=== PATIENT | male | born 1935 | race Caucasian/White ===

== ENCOUNTER → 2016-06-26 | Outpatient (CLI) | payer OTHER ==
[~2016-06-26] VITALS: Ht 160 cm; Wt 60.2 kg
[~2016-06-26] MED LIST: ACET-24 PO; ACET1TAB84 PO; ADVIN25/60 INH; ALBUAER2 INH; ALEN70TA4 PO; ASPEC81 PO; ASPI81TA28 PO; CLB/200 PO; CLOP1TAB15 PO; DRON400T PO; LISI20TA3 PO; MULT-506 PO; NIAC1TAB59 PO; NTRGSL/4 UT; OMEG10007 PO; ONDA8TAB6 PO; PANT40TA PO; RXC5 PO; SIMV20TA2 PO; ULT50X PO
[2016-06-26 11:03] VITALS: Ht 160 cm; Wt 60.2 kg
--- NOTE | 2016-06-26 11:47 | PAT Medication Instructions ---
Service Date Jun 26, 2016. Current Home Medication List Acetaminophen (Tylenol Arthritis Ext Rel), 650 MG PO Q8H Alendronate Sodium (Fosamax), 70 MG PO WK Aspirin (Aspirin Ec), 81 MG PO QAM Clopidogrel (Plavix), 75 MG PO QAM Dronedarone Hcl (Multaq), 1 TAB PO BID Fluticasone Prop/Salmeterol (Advair Diskus 250/50 60 Dose), 1 PUFF INH BID Lisinopril (Prinivil), 20 MG PO QAM Multivitamin (Multivitamin), 1 TAB PO QAM Niacin Ext Rel (Niaspan Ext Rel), 500 MG PO HS Nitroglycerin (Nitrostat), 0.4 MG UT PRN Pantoprazole (Protonix), 40 MG PO QAM Simvastatin (Zocor), 20 MG PO QPM Medication Instructions For Your Scheduled Surgery Alendronate Sodium (Fosamax), 70 MG PO WK (continue as directed) - Check with surgeon/band sawyer for instructions (patient made aware that plavix needs to be held 7 days prior to surgery for spinal anesthesia-- patient will check if okay with cardiology) Clopidogrel (Plavix), 75 MG PO QAM - Hold the following medications the morning of surgery: Multivitamin (Multivitamin), 1 TAB PO QAM Lisinopril (Prinivil), 20 MG PO QAM - Take the following medications the morning of surgery with a sip of water: Nitroglycerin (Nitrostat), 0.4 MG UT PRN (if needed) Pantoprazole (Protonix), 40 MG PO QAM Fluticasone Prop/Salmeterol (Advair Diskus 250/50 60 Dose), 1 PUFF INH BID Acetaminophen (Tylenol Arthritis Ext Rel), 650 MG PO Q8H (if needed) Aspirin (Aspirin Ec), 81 MG PO QAM Dronedarone Hcl (Multaq), 1 TAB PO BID - Hold the following medications as scheduled the night before surgery: Niacin Ext Rel (Niaspan Ext Rel), 500 MG PO HS - Take the following medications as scheduled the night before surgery: Simvastatin (Zocor), 20 MG PO QPM Nitroglycerin (Nitrostat), 0.4 MG UT PRN (if needed) Fluticasone Prop/Salmeterol (Advair Diskus 250/50 60 Dose), 1 PUFF INH BID Acetaminophen (Tylenol Arthritis Ext Rel), 650 MG PO Q8H (if needed) If you have any questions please call us at [phone] (Pat Gao PA-C) or [phone] or [phone]
[2016-06-26 13:37] LABS: BASO % 0.3 %; BASO ABS # 0.03 K/uL (0-0.2); COMPLETE YES; EOS % 1.8 %; HEMATOCRIT 40.5 % (42-52); IG% 0.2 %; LYMPH % 22.6 %; MEAN CORPUSCULAR HEMOGLOBIN 30.2 pg (25-34); MEAN CORPUSCULAR HGB CONC 32.1 g/dl (32-36); MONO % 7.1 %; PLATELET COUNT 386 K/uL (130-400); RED BLOOD COUNT 4.31 M/uL (4.7-6.1); WHITE BLOOD COUNT 11.48 K/uL (4.8-10.8)
[2016-06-26 13:45] LABS: URINE APPEARANCE CLOUDY (CLEAR); URINE BILIRUBIN NEG (NEG); URINE COLOR DK YELLOW; URINE EPITHELIAL CELL AUTO >30 /lpf (0-5); URINE NITRITE NEG (NEG); URINE SPECIFIC GRAVITY 1.031 (1.000-1.030); UROBILINOGEN NEG (NEG); ZZUR CULT IF INDIC CLEAN CATCH NO
[2016-06-26 13:51] LABS: MANUAL MICROSCOPIC REQUIRED? NO; REVIEW REQ? YES
[2016-06-26 13:56] LABS: PARTIAL THROMBOPLASTIN RATIO 1.1; PROTHROMBIN TIME (PATIENT) 10.5 SECONDS (9.0-12.0)
[2016-06-26 13:57] LABS: BUN/CREATININE RATIO 12.4 (10-20); CALCIUM 8.8 mg/dl (8.5-10.1); CREATININE 0.83 mg/dl (0.60-1.40); POTASSIUM 4.2 mmol/L (3.5-5.1)
--- NOTE | 2016-07-10 16:32 | HISTORY & PHYSICAL EXAMINATION ---
DATE OF ADMISSION: 07/14/2016 CHIEF COMPLAINT: Right hip pain. HISTORY OF PRESENT ILLNESS: Mr. Mark is a 80-year-old male with a 3-month history of right hip pain. The patient rates his pain at 9/10. He has pain with his daily activities. He has limited standing and walking tolerance. Pain is worse with weightbearing. The patient is essentially wheelchair bound at this point. He is taking Tylenol for pain. He is scheduled for right hip replacement. PAST MEDICAL HISTORY: Atrial fib, [place], hypertension, acid reflux, hypercholesterolemia, spinal stenosis, COPD, and a history of kidney stones. He denies diabetes or DVT. PAST SURGICAL HISTORY: Lithotripsy. SOCIAL HISTORY: The patient denies alcohol or tobacco use. He lives in a single-flor home. He is and retired. FAMILY HISTORY: Negative for DVT. MEDICATIONS: Simvastatin 20 mg daily, Plavix 75 mg daily, pantoprazole 40 mg daily, lisinopril 20 mg daily, niacin ER, alendronate 70 mg weekly, Advair HFA 230/21 mcg, Multaq oral tab 400 mg b.i.d., multivitamin 1 daily, and Tylenol p.r.n. ALLERGIES: None. REVIEW OF SYSTEMS: See HPI. Ten other systems reviewed, all negative. PHYSICAL EXAMINATION: VITAL SIGNS: Height 5 feet 3 inches, weight 142 pounds, and BMI 25. GENERAL: This is a well-developed and well-nourished male who is alert and oriented x3. Mood and affect are appropriate. HEENT: Normocephalic and atraumatic. Mucous membranes are moist and intact. NECK: Supple without lymphadenopathy. HEART: Regular rate and rhythm without murmurs, rubs or gallops. LUNGS: Clear to auscultation without wheezes or rhonchi. ABDOMEN: Soft and nontender. Bowel sounds are equal and active. EXTREMITIES: No ecchymosis, redness or warmth. Thigh and calf are soft and nontender. Log roll of the hip reproduces pain in the groin. Range of motion is decreased. He is neurovascularly intact with +5/5 strength. X-RAY EXAMINATION: AP and lateral views show joint space narrowing and osteophyte formation. IMPRESSION: Degenerative joint disease, right hip. PLAN: The patient will be admitted for a right total hip arthroplasty, direct anterior approach. We will plan on aspirin and resuming Plavix for DVT prophylaxis. He will have [facility] for home physical therapy.
== END | disposition home or self-care (01) ==
LOC: C.LAB 08:00 → EDSTATUS 07-21 13:45
PROVIDERS: ATTEND Physician Assistant Medical
DX: Z01.818 Encounter for other preprocedural examination (principal); Z79.02 Long term (current) use of antithrombotics/antiplatelets; Z79.899 Other long term (current) drug therapy

== ENCOUNTER 2016-10-13 07:08 | Inpatient (IN) | payer OTHER ==
[2016-09-10 07:35] VITALS: BMI 23.0
[2016-10-13] VITALS (10 sets, daily range): BP systolic 111–149; BP diastolic 59–82; PULSE 81–95; TEMP 36.4–36.9; O2SAT 93–99; Ht 162.6 cm; Wt 60.5 kg
[~2016-10-13] VITALS: Ht 162.6 cm; Wt 60.5 kg
[~2016-10-13 07:08] MED LIST changes: -ACET-24 PO; +ACETAMINOPHEN 500 MG TAB PO SCH; -ALBUAER2 INH; -ASPEC81 PO; +CEFAZOLIN 1000MG/55 ML D5W 55 ML IV SCH; -CLOP1TAB15 PO; +CeleBREX 200 MG CAP PO SCH; +DEXAMETHASONE 4 MG TAB PO SCH; +FAMOTIDINE 20 MG TAB PO SCH; +GABAPENTIN 300 MG CAP PO SCH; +LACTATED RINGER'S 1000ML 1,000 ML IV SCH; +LACTATED RINGER'S 1000ML 500 ML IV ONE; +LACTATED RINGER'S 1000ML IV SCH; -OMEG10007 PO; +ROPIVACAINE 5MG/ML 30 ML 150 MG, BUPIVACAINE/EPINEPHR 0.5% MPF 30 ML, KETOROLAC TROMETH... INFIL SCH; -RXC5 PO; -ULT50X PO
--- NOTE | 2016-10-13 07:15 | History & Physical Bridge Note ---
H&P Re-Evaluation Bridge Note: I have examined the patient, reviewed the History & Physical and in the interval since the performance of the History & Physical I have noted the following changes of clinical significance: No changes noted
[2016-10-13] MEDS ORDERED: BUPIVACAINE 0.5 % 5 MG/1 ML PF 10ML VIAL ONE (07:34)
[2016-10-13] MEDS ORDERED: HYDROmorphone INJ 1 MG/ML SYR IV PRN (07:45)
[2016-10-13] MEDS ORDERED: MEPERIDINE HCL 25 MG/ML CARP IV PRN (07:45)
[2016-10-13] MEDS ORDERED: LABETALOL HCL IV 5 MG/ML 20ML IV PRN (07:45)
[2016-10-13] MEDS ORDERED: ATROPINE SULFATE 0.1 MG/ML 5ML SYR IV PRN (07:45)
[2016-10-13] MEDS ORDERED: FENTANYL CITRATE INJ 50 MCG/1 ML 2 ML VIAL IV PRN (07:45)
[2016-10-13] MEDS ORDERED: EpHEDrine SULFATE INJ 50 MG/ML AMP IV PRN (07:45)
[2016-10-13] MEDS ORDERED: ONDANSETRON INJ 2 MG/ML 2 ML VIAL IV PRN ×2 (07:45→11:00)
[2016-10-13] MEDS ORDERED: MIDAZOLAM HCL 1 MG/ML 2ML VIAL ONE (08:04)
[2016-10-13] MEDS ORDERED: FENTANYL CITRATE INJ 50 MCG/1 ML 2 ML VIAL ONE ×2 (08:05→08:46)
[2016-10-13] MEDS ORDERED: PROPOFOL IV EMULSION 10 MG/ML 20 ML VIAL IV ONE (08:06)
[2016-10-13] MEDS ORDERED: LIDOCAINE HCL 2% 2 ML VIAL (20MG/ML) ONE (08:06)
[2016-10-13] MEDS ORDERED: POVIDONE-IODINE OP SOLN 30 ML BTL ONE (08:46)
[2016-10-13] MEDS ORDERED: ORTHO JOINT ANESTHETIC ONE (08:46)
[2016-10-13] MEDS ORDERED: BACITRACIN 50000 UNIT VIAL ONE (08:46)
[2016-10-13] MEDS ORDERED: DEXAMETHASONE SOD INJ 4 MG/ML VIAL ONE (09:00)
[2016-10-13] MEDS ORDERED: ONDANSETRON INJ 2 MG/ML 2 ML VIAL ONE (09:01)
[2016-10-13] MEDS: TRANEXAMIC ACID INJ 1,000 MG in SODIUM CHLORIDE 0.9% 100ML 100 ML IV SCH ×2 (09:13→13:57)
--- NOTE | 2016-10-13 09:24 | History and Physical ---
History & Physical Date & Time of Service: Oct 13, 2016 at 09:11 Chief Complaint: Right Hip Osteoarthritis Primary Care Physician: Velasquez Lerner M.D. History of Present Illness Source: family Patient is a 80-year-old white male who is here today for right total hip arthroplasty. The patient currently is having some nausea and vomiting from some medications given earlier and history will be taken from the patient's and son and a little bit from himself as well. He states that he has been having pain in the low back and hip for proximal 7 years. He has a history of lumbar stenosis and has had back pain in the past but he began having right hip pain in the groin and down the leg over the last several years. He had been seen by Dr. Ríos in the past and had been scheduled for [facility] in June but was subsequently canceled at that time. The family states that he is now essentially bed to chair activity. He was ambulating with a cane or walker at home however he is unable to do this anymore due to right hip pain. Conservative therapy has no longer giving him any relief and he is now here for right total hip arthroplasty. 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 No history of diabetes mellitus , tuberculosis, hepatitis, DVT. Past surgical history: History of lithotripsy in the past, placement of cardiac stents 2 Family History Patient reports no known family medical history. Noncontributory Social History Smoking Status: Never Smoker Alcohol Use: none Marital Status: Occupational Status: retired Allergies Coded Allergies: No Known Allergies (Unverified , 10/13/16) Home Medications Scheduled Acetaminophen (Tylenol Arthritis Ext Rel), 650 MG PO Q8H Alendronate Sodium (Fosamax), 70 MG PO WK Aspirin (Aspirin Ec), 81 MG PO QAM Celecoxib (CeleBREX), 200 MG PO BID Dronedarone Hcl (Multaq), 1 TAB PO BID Fluticasone Prop/Salmeterol (Advair Diskus 250/50 60 Dose), 1 PUFF INH BID Lisinopril (Prinivil), 20 MG PO QAM Multivitamin (Multivitamin), 1 TAB PO QAM Niacin Ext Rel (Niaspan Ext Rel), 500 MG PO HS Nitroglycerin (Nitrostat), 0.4 MG UT PRN Pantoprazole (Protonix), 40 MG PO QAM Simvastatin (Zocor), 20 MG PO QPM Scheduled PRN Ondansetron Hcl (Zofran), 8 MG PO Q8 PRN for Nausea Review of Systems Constitutional: No fever, No chills, No sweats, No weight loss, No weakness, No fatigue Eyes: No worsening of vision, No eye pain, No redness, No discharge, No diplopia ENT: No hearing loss, No unusual epistaxis, No nasal symptoms, No sore throat, No tinnitus, No dental problems, No trouble swallowing Respiratory: + cough (regular with sputum production due to COPD), + sputum, + shortness of breath (on exertion), No wheezing, No dyspnea on exertion, No dyspnea at rest, No hemoptysis Cardiovascular: + edema (mild RLE compared to left), No chest pain, No orthopnea, No PND, No claudication, No palpitations Abdomen: + problem reported (rectal bleeding dut to hemorrhoids), No pain, No nausea, No vomiting, No diarrhea, No constipation, No GI bleeding Musculoskeletal: + joint pain (R hip), No muscle pain, No calf pain Genitourinary - Male: + problem reported (currently with renal calculi), No hematuria, No dysuria Neurologic: No memory loss, No paralysis, No weakness, No numbness/tingling, No vertigo, No problem reported Psychiatric: No depression symptoms, No anhedonism, No anxiety, No insomnia, No substance abuse, No problem reported Integumentary: No rash, No itch, No new/changing skin lesions, No color change , No bleeding, No problem reported Allergic / Immunologic: No environmental allergies, No seasonal allergies, No pet sensitivities, No food allergies, No hives, No frequent infections, No poor healing, No prolonged convalescence, No problem reported Physical Exam Vital Signs Date Time Temp Pulse Resp B/P (MAP) Pulse Ox O2 Delivery O2 Flow Rate FiO2 10/13/16 07:45 36.9 81 20 149/82 98 Room Air General Appearance: WD/WN Head: normocephalic, atraumatic Eyes: + pertinent finding (mild scleral injection) ENT: normal ENT inspection Neck: supple Respiratory/Chest: lungs clear Cardiovascular: regular rate, rhythm Abdomen/GI: normal bowel sounds, non tender Back: normal inspection Extremities/Musculoskelatal: + pertinent finding (Right hip pain with limited ROM. Multiple types of ROM causes hip/groin pain) Neurologic/Psych: no motor/sensory deficits Skin: normal color Impression Assessment and Plan Djd Right Hip Plan : Right [facility] Advanced Directives Existing Living Will: No Existing Power of Traveling Accountant: No
--- NOTE | 2016-10-13 10:29 | [facility] Post Operative Brief Note ---
Immediate Operative Summary Operative Date Oct 13, 2016. Pre-Operative Diagnosis Degenerative joint disease right hip Post-Operative Diagnosis Degenerative joint disease right hip Procedure(s) Performed Right total hip arthroplasty Surgeon Dr. Sky Edge In[facility] Heels Surgeon(s) Sy Naidu PA-C Estimated Blood Loss 75cc Findings 3/4 collapse femoral head Specimens A. Right femoral head Disposition Recovery Room / PACU
--- NOTE | 2016-10-13 10:42 | OPERATIVE REPORT ---
DATE OF OPERATION: 10/13/2016 PREOPERATIVE DIAGNOSIS: Osteoarthritis, right hip. POSTOPERATIVE DIAGNOSIS: Osteoarthritis, right hip. PROCEDURE: Right connective total hip arthroplasty. SURGEON: Dr. Sky. ROUND BONER: TOMASZ Lugo ANESTHESIA: Spinal. COMPLICATIONS: None. IMPLANTS USED: Acetabular reamer used 52, acetabular shell 52, femoral head -2.5 x 36 mm ceramic, and femoral stem 5. OPERATION AND FINDINGS: DESCRIPTION OF PROCEDURE: Following induction of adequate spinal anesthesia, the patient was placed in left lateral decubitus position and a right Johny-Langenbeck incision was made. Subcutaneous tissue was sharply dissected. Electrocautery used for hemostasis. The fascia was incised throughout the length of the wound and a sneed scissor placed beneath the short external rotators. The pyriformis was tagged with #1 Vicryl. The short external rotators were divided from the posterior aspect of the femur using electrocautery. These were swept posteriorly. A T-capsulotomy incision was made and the hip was dislocated using a combination of flexion, adduction, and internal rotation. Exposure of the femoral neck with old-style Hohmann and a blunt Hohmann was carried out and a femoral rasp was utilized as a guide for making the appropriate level femoral neck cut. This bone fragment was removed and reserved on the back table. Next, attention was turned to the acetabulum where bone hook was used to retract the femur while the offset retractors were placed anterior and posteriorly. A double-angled Hohmann was placed in superior and anterior position exposing the acetabulum nicely. Acetabular labrum as well as posterior capsule elements were removed using a long knife and a long pickup. Fovea centralis was cleared of all soft tissue. Sequential reamings were carried up to a 52 and decision was made to proceed with impaction of a 52 trabecular metal cup. This was impacted and held using a single 35 mm bone screw. The acetabular liner was placed with 15 of elevated posterior wall in the superior and posterior position. Next, attention was turned to the femoral portion of the case where a Bovie and pickup was used to further clear short external rotators from their insertion on the femur. Box osteotome was used to gain access to the femoral canal and the T-handled rasp and a rattail rasp were used to further open and lateral the canal. Sequentially raspings were carried up to a 5, which gave good fit and fill of the proximal femur. A trial reduction was carried out and std offset femoral neck component was chosen as the size to be used. A -2.5 x 36 mm femoral head was impacted into position, +0 head was utilized. The trial reduction was stable in all degrees of rotation with no [id number] impingement. The hip was dislocated. The trial components were removed and the final femoral stem, neck, and femoral head combination were assembled on the back table and impacted into position. Hip was relocated. Range of motion checked once again successful and the wound was irrigated. The pyriformis repaired to the greater trochanter using #1 Vicryl [id number] suture. A Hemovac drain was placed and the fascia was closed using #1 Vicryl, subcutaneous tissue was closed using 0 Dexon, and skin was closed with henri. Sterile dressing of Adaptic, 4 x 4's, ABDs, and foam tape was applied. The patient tolerated the procedure well. Due to the complex nature of the procedure, the entire surgery was performed with the operational assistance of TOMASZ Lugo. The office clerk assistant, under direct supervision, was involved in the actual performance of all aspects of the surgical procedure including hemostasis, tissue retraction and incision, instrument management, patient positioning, and wound closure. I attest to the content of the Intraoperative Record and any orders documented therein. Any exceptions are noted below. TANIKA
[2016-10-13] MEDS ORDERED: MoRPHine SULFATE 2 MG/ML CARP IV PRN (11:00)
[2016-10-13] MEDS ORDERED: MoRPHine SULFATE 4 MG/ML 1 ML CARP\\VIAL IV PRN (11:00)
[2016-10-13] MEDS ORDERED: NITROGLYCERIN 0.4 MG SL PER TAB CHARGE UT SCH (11:00)
[2016-10-13] MEDS ORDERED: TRAMADOL HCL 50 MG TAB PO PRN (11:00)
[2016-10-13] MEDS ORDERED: MAGNESIUM HYDROXIDE SUSP 30 ML UDC PO PRN (11:00)
[2016-10-13] MEDS ORDERED: OXYCODONE HCL IR 5 MG TAB (IMMEDIATE RELEASE) PO PRN (11:00)
[2016-10-13] MEDS ORDERED: BISACODYL 10 MG SUPP PR PRN (11:00)
[2016-10-13] MEDS ORDERED: ALUMINUM/MAGNESIUM/SIMETH (MAALOX MAX) 30 ML UDC PO PRN (11:00)
--- NOTE | 2016-10-13 12:03 | DIAGNOSTIC IMAGING REPORT ---
RIGHT PELVIS/UNILATERAL HIP 1 VIEW CLINICAL HISTORY: 80 years-old Male presenting with postoperative right hip arthroplasty. TECHNIQUE: Single frontal view of the pelvis and lateral view of the right hip were obtained. COMPARISON: 08/13/2015. FINDINGS: Interval total right hip arthroplasty. No apparent hardware complication. No fracture or malalignment. Expected soft tissue emphysema and a surgical drain noted. Left hip joint congruent and grossly normal. IMPRESSION: Expected postoperative changes status post right hip arthroplasty. Electronically signed by: Vinod Ho M.D. 10/13/2016 12:02 PM Dictated Date/Time: 10/13/2016 12:01 PM
--- NOTE | 2016-10-13 13:13 | Anesthesiology Progress Note ---
Anesthesia Post Op Note Date & Time Oct 13, 2016 at 13:13 Vital Signs Pain Intensity: 0 Vital Signs Past 12 Hours Date Time Temp Pulse Resp B/P (MAP) Pulse Ox O2 Delivery O2 Flow Rate FiO2 10/13/16 12:41 97/56 10/13/16 12:39 79 17 10/13/16 12:39 75 17 96 10/13/16 12:36 113/62 10/13/16 12:34 73 20 97 10/13/16 12:34 76 20 10/13/16 12:31 109/55 10/13/16 12:29 70 21 97 10/13/16 12:29 68 21 10/13/16 12:26 118/59 10/13/16 12:24 74 18 87 10/13/16 12:24 77 18 10/13/16 12:21 118/62 10/13/16 12:19 84 17 10/13/16 12:19 89 17 92 10/13/16 12:18 77 19 10/13/16 12:18 76 19 96 10/13/16 12:16 111/54 10/13/16 12:13 68 16 95 10/13/16 12:13 70 16 10/13/16 12:11 114/55 10/13/16 12:08 74 17 98 10/13/16 12:08 76 17 10/13/16 12:06 107/56 10/13/16 12:03 67 16 10/13/16 12:03 65 16 97 10/13/16 12:01 119/61 10/13/16 11:58 88 17 97 10/13/16 11:58 89 17 10/13/16 11:56 114/57 10/13/16 11:53 67 21 10/13/16 11:53 85 21 100 10/13/16 11:51 37.1 88 20 110/56 100 Nasal Cannula 2 10/13/16 11:51 110/56 10/13/16 11:48 76 18 10/13/16 11:48 75 18 99 10/13/16 11:47 96 21 100 10/13/16 11:47 87 21 10/13/16 11:46 114/54 10/13/16 11:42 72 15 10/13/16 11:42 69 15 100 10/13/16 11:41 108/58 10/13/16 11:37 71 16 98 10/13/16 11:37 68 16 10/13/16 11:36 97/55 10/13/16 11:32 74 18 10/13/16 11:32 74 18 97 10/13/16 11:31 120/51 10/13/16 11:27 80 19 10/13/16 11:27 86 19 98 10/13/16 11:26 114/57 10/13/16 11:22 65 18 99 10/13/16 11:22 63 18 10/13/16 11:21 108/52 10/13/16 11:18 64 18 10/13/16 11:18 62 18 98 10/13/16 11:16 95/52 10/13/16 11:13 74 17 97 10/13/16 11:13 62 17 10/13/16 11:11 104/52 10/13/16 11:08 75 15 10/13/16 11:08 80 15 97 10/13/16 11:06 114/52 10/13/16 11:03 75 10/13/16 11:03 75 97 10/13/16 11:01 110/56 10/13/16 10:59 119/65 10/13/16 10:58 36.3 92 20 119/65 94 Mask 10 10/13/16 07:45 36.9 81 20 149/82 98 Room Air Notes Mental Status: alert / awake / arousable, participated in evaluation Pt Amnestic to Procedure: Yes Nausea / Vomiting: adequately controlled Pain: adequately controlled Airway Patency, RR, SpO2: stable & adequate BP & HR: stable & adequate Hydration State: stable & adequate Anesthetic Complications: no major complications apparent
[2016-10-13] MEDS: D5W AND 1/2NSS + 20MEQ KCL 1,000 ML IV SCH ×2 (13:56→23:15)
[2016-10-13] MEDS: ACETAMINOPHEN 500 MG TAB PO SCH ×2 (13:58→21:14)
[2016-10-13] MEDS: CEFAZOLIN IV 1,000 MG in DEXTROSE 5% 50ML 50 ML IV SCH (16:50)
[2016-10-13] MEDS: FERROUS GLUCONATE 324 MG TAB PO SCH (16:51)
[2016-10-13] MEDS ORDERED: ALBUT/IPRATROP 3MG/0.5MG NEB 3 ML VIAL INH PRN (17:15)
--- NOTE | 2016-10-13 17:26 | Medical Consult ---
Consultation Date of Consultation: Oct 13, 2016. Attending Physician: Cory Sky M.D. Reason for Consultation: Medical management History of Present Illness This is a 80 y/o male with a history of paroxysmal a-fib, CAD, [place] x 2 s/p stents x 2 in 2008, HTN, HLD, COPD, osteoporosis and GERD who presents s/p right GEORGE with Dr. Sky on 10/13 for medical management. The patient reports feeling well post operatively. He denies any pain. He does still have some numbness/tingling in his right lower extremity. Per his , the patient did have some nausea earlier this morning prior the procedure, but he denies any now or following the procedure. He ate a late lunch without any difficulties. He has also urinating postoperatively without issue. He believes he is passing gas as well but denies any bowel movements. The patient denies fevers, chills, sweats, chest pain, palpitations, claudication, cough, wheezing, shortness of breath, nausea, vomiting, abdominal pain, dysuria, hematuria, urinary retention , paralysis, weakness. Past Medical/Surgical History Medical Problems: (1) Contusion of hip, right Status: Acute (2) Forehead contusion Status: Acute (3) Head injury, closed Status: Acute Paroxysmal a-fib CAD [place] x 2, stents x 2--NSTEMI May 2008, STEMI July 2008 HTN HLD COPD Osteoporosis GERD Family History Cancer (breast, colon) Hyperlipidemia Hypertension Myocardial infarction Social History Smoking Status: Never Smoker Smokeless Tobacco Use: Yes (1 can every 3 days) Alcohol Use: none Drug Use: none Marital Status: Housing Status: lives with significant other Occupation Status: retired Allergies Coded Allergies: No Known Allergies (Unverified , 10/13/16) Current Inpatient Medications Current Inpatient Medications Medications (Trade) Dose Ordered Sig/Margo Route Start Time Stop Time Status Last Admin Dose Admin Lactated Ringer's 1,000 ml @ 60 mls/hr [id number] IV 10/13/16 06:00 10/13/16 22:39 Cefazolin Sodium 55 ml @ 100 mls/hr PREOP IV 10/13/16 06:00 10/13/16 18:00 10/13/16 09:27 100 MLS/HR Acetaminophen (Tylenol Tab) 1,000 mg PREOP PO 10/13/16 06:00 10/13/16 18:00 Celecoxib (CeleBREX CAP) 200 mg PREOP PO 10/13/16 06:00 10/13/16 18:00 10/13/16 08:13 200 MG Dexamethasone (Decadron Tab) 8 mg PREOP PO 10/13/16 06:00 10/13/16 18:00 10/13/16 08:13 8 MG Famotidine (Pepcid Tab) 20 mg PREOP PO 10/13/16 06:00 10/13/16 18:00 10/13/16 08:13 20 MG Gabapentin (Neurontin Cap) 300 mg PREOP PO 10/13/16 06:00 10/13/16 18:00 10/13/16 08:13 300 MG Tranexamic Acid 1000 mg/Sodium Chloride 110 ml @ 660 mls/hr TODAY@06,0630 IV 10/13/16 06:00 10/13/16 18:00 10/13/16 09:13 660 MLS/HR Lactated Ringer's 1,000 ml @ 15 mls/hr Q24H IV 10/13/16 06:00 10/14/16 05:59 10/13/16 08:07 15 MLS/HR Fentanyl Citrate (Fentanyl Inj) 50 mcg Q5M PRN IV 10/13/16 07:45 10/14/16 07:44 Hydromorphone HCl (Dilaudid Inj) 0.5 mg Q5M PRN IV 10/13/16 07:45 10/14/16 07:44 Meperidine HCl (Demerol Inj) 25 mg Q5M PRN IV 10/13/16 07:45 10/14/16 07:44 Ondansetron HCl (Zofran Inj) 4 mg ONE PRN IV 10/13/16 07:45 10/14/16 07:44 Labetalol HCl (Normodyne IV) 5 mg Q5M PRN IV 10/13/16 07:45 10/14/16 07:44 Ephedrine Sulfate (EpHEDrine SULFATE INJ) 5 mg Q5M PRN IV 10/13/16 07:45 10/14/16 07:44 Atropine Sulfate (Atropine Sulfate 0.1MG/Ml Inj) 0.5 mg Q1M PRN IV 10/13/16 07:45 10/14/16 07:44 Celecoxib (CeleBREX CAP) 200 mg BID PO 10/13/16 21:00 11/12/16 20:59 Dronedarone (Multaq Tab) 400 mg BID PO 10/13/16 21:00 11/12/16 20:59 Salmeterol Xinafoate/ Fluticasone (Advair Diskus 250/50 Inh) 1 puff BID INH 10/13/16 21:00 11/12/16 20:59 Lisinopril (Zestril Tab) 20 mg QAM PO 10/14/16 09:00 11/13/16 08:59 Multivitamins (Multivitamin Tab) 1 tab QAM PO 10/14/16 09:00 11/13/16 08:59 Niacin (Niaspan Extended Rel Tab) 500 mg HS PO 10/13/16 21:00 11/12/16 20:59 Nitroglycerin (Nitrostat Tab) 0.4 mg PRN UT 10/13/16 11:00 11/12/16 10:59 Pantoprazole Sodium (Protonix Tab) 40 mg QAM PO 10/14/16 09:00 11/13/16 08:59 Simvastatin (Zocor Tab) 20 mg QPM PO 10/13/16 21:00 11/12/16 20:59 Morphine Sulfate (MoRPHine SULFATE INJ) 2 mg Q4HWA PRN IV 10/13/16 11:00 10/27/16 10:59 Morphine Sulfate (MoRPHine SULFATE INJ) 4 mg Q4HWA PRN IV 10/13/16 11:00 10/27/16 10:59 Potassium Chloride/Dextrose/ Sod Cl 1,000 ml @ 100 mls/hr Q10H IV 10/13/16 14:00 10/14/16 10:58 10/13/16 13:56 100 MLS/HR Oxycodone HCl (Roxicodone Immediate Rel Tab) 1 TABLET FOR PAIN RATING... Q4H PRN PO 10/13/16 11:00 10/27/16 10:59 Acetaminophen (Tylenol Tab) 1,000 mg Q8 PO 10/13/16 14:00 11/12/16 13:59 10/13/16 13:58 1,000 MG Magnesium Hydroxide (Milk Of Magnesia Susp) 30 ml Q6H PRN PO 10/13/16 11:00 11/12/16 10:59 Bisacodyl (Dulcolax Supp) 10 mg DAILY PRN IA 10/13/16 11:00 11/12/16 10:59 Senna (Senokot Tab) 17.2 mg HS PO 10/13/16 21:00 11/12/16 20:59 Docusate Sodium (coLACE CAP) 100 mg BID PO 10/13/16 21:00 11/12/16 20:59 Al Hydrox/Mg Hydrox/Simethicone (Maalox Max Susp) 15 ml Q4H PRN PO 10/13/16 11:00 11/12/16 10:59 Ondansetron HCl (Zofran Inj) 4 mg Q6H PRN IV 10/13/16 11:00 11/12/16 10:59 Ferrous Gluconate (Ferrous Gluconate Tab) 324 mg TIDM PO 10/13/16 17:45 11/12/16 17:44 10/13/16 16:51 324 MG Tramadol HCl (Ultram Tab) 1 TABLET FOR PAIN RATING... Q4H PRN PO 10/13/16 11:00 11/12/16 10:59 Cefazolin Sodium 1000 mg/Dextrose 55 ml @ 100 mls/hr Q8H IV 10/13/16 18:00 10/14/16 02:32 10/13/16 16:50 100 MLS/HR Aspirin (Ecotrin Tab) 81 mg BID PO 10/13/16 21:00 11/12/16 20:59 Review of Systems See HPI for pertinent positives and negatives. All other systems reviewed and negative. Physical Exam Date Time Temp Pulse Resp B/P (MAP) Pulse Ox O2 Delivery O2 Flow Rate FiO2 10/13/16 16:00 36.9 85 18 120/65 (83) 99 Nasal Cannula 2.0 10/13/16 14:59 36.4 83 18 115/64 (81) 99 Nasal Cannula 2.0 10/13/16 14:01 36.7 90 18 130/71 (90) 93 Nasal Cannula 2.0 10/13/16 13:27 36.7 94 18 111/60 (77) 96 Nasal Cannula 3.0 10/13/16 13:15 98 Nasal Cannula 3.0 10/13/16 13:03 36.5 92 18 119/66 (83) 98 Nasal Cannula 3.0 14/17 13:00 98 Nasal Cannula 2.0 10/13/17 12:41 97/56 10/13/17 12:39 79 17 10/13/17 12:39 75 17 96 10/13/17 12:36 113/62 14/17 12:34 73 20 97 14/17 12:34 76 20 1417 12:31 109/55 10/13/17 12:29 70 21 97 14/17 12:29 68 21 14/17 12:26 118/59 14/17 12:24 74 18 87 14/17 12:24 77 18 17 12:21 118/62 10/13/17 12:19 84 17 10/13/16 12:19 89 17 92 10/13/16 12:18 77 19 10/13/16 12:18 76 19 96 10/13/16 12:16 111/54 10/13/16 12:13 68 16 95 10/13/16 12:13 70 16 10/13/16 12:11 114/55 10/13/16 12:08 74 17 98 10/13/16 12:08 76 17 10/13/16 12:06 107/56 10/13/16 12:03 67 16 10/13/16 12:03 65 16 97 10/13/16 12:01 119/61 10/13/17 11:58 88 17 97 10/13/16 11:58 89 17 10/13/16 11:56 114/57 17 11:53 67 21 14/17 11:53 85 21 100 10/13/17 11:51 37.1 88 20 110/56 100 Nasal Cannula 2 14/17 11:51 110/56 14/17 11:48 76 18 14/17 11:48 75 18 99 14/17 11:47 96 21 100 14/17 11:47 87 21 14/17 11:46 114/54 14/17 11:42 72 15 14/17 11:42 69 15 100 14/17 11:41 108/58 14/17 11:37 71 16 98 10/13/16 11:37 68 16 10/13/16 11:36 97/55 10/13/16 11:32 74 18 10/13/16 11:32 74 18 97 10/13/16 11:31 120/51 10/13/16 11:27 80 19 10/13/16 11:27 86 19 98 10/13/16 11:26 114/57 10/13/16 11:22 65 18 99 10/13/16 11:22 63 18 10/13/16 11:21 108/52 10/13/16 11:18 64 18 10/13/16 11:18 62 18 98 10/13/16 11:16 95/52 10/13/16 11:13 74 17 97 10/13/16 11:13 62 17 10/13/16 11:11 104/52 10/13/16 11:08 75 15 10/13/16 11:08 80 15 97 10/13/16 11:06 114/52 10/13/16 11:03 75 10/13/16 11:03 75 97 10/13/16 11:01 110/56 10/13/16 10:59 119/65 10/13/16 10:58 36.3 92 20 119/65 94 Mask 10 10/13/16 07:45 36.9 81 20 149/82 98 Room Air General appearance: Well-developed, well-nourished, no apparent distress Head: Normocephalic, atraumatic Eyes: Normal inspection, PERRL, EOMI ENT: Normal ENT inspection, hearing grossly normal, pharynx normal Neck: Supple, no JVD, trachea midline Respiratory/Chest: +Diffuse wheezing. Normal breath sounds, no respiratory distress Cardiovascular: Regular rate & rhythm, no gallop, no murmur Abdomen/GI: Normal bowel sounds, non-tender, soft Extremities/Musculoskeletal: +Trace pitting edema. Normal pedal pulses bilaterally. Normal inspection, no calf tenderness Neurological/Psych: +Sensation intact. Alert, normal mood/affect, oriented x 3 Skin: Normal color, warm/dry, no rash Assessment & Plan 80 y/o male with a history of paroxysmal a-fib, CAD, [place] x 2 s/p stents x 2 in 2008, HTN, HLD, COPD, osteoporosis and GERD who presents s/p right GEORGE with Dr. Sky on 10/13 for medical management. S/p right GEORGE--stable -Pain management, DVT prophylaxis, and PT/OT as per primary team Paroxysmal a-fib--stable, currently in SR -Continue dronedarone 400 mg PO BID CAD, h/o [place], HTN, HLD -Continue ASA, niacin 500 mg PO qhs and simvastatin 20 mg PO qhs -Hold lisinopril for now until renal function checked. May resume if stable. COPD--wheezing on exam -DuoNebs QIDR and q2h prn SOB/wheezing -Continue Advair BID Osteoporosis -Pt takes Fosamax 70 mg PO weekly on Sundays GERD -Continue Protonix 40 mg PO qd Code Status -Level I, FULL RESUSCITATION STATUS Thank you for this consultation. We will continue to follow. Reviewed: Pt Seen/Exam by Me History Physician Machine Pecan Picker Supervision Note: I interviewed and examined the patient. Discussed with TOMASZ Kulkarni and agree with findings and plan as documented in the note. Any exceptions or clarifications are listed here: Patient doing very well postoperatively from his right GEORGE. No chest pain. Vitals reviewed No acute distress, sitting up in bed eating his dinner Regular rate and rhythm, no murmurs, rubs Lungs with diffuse wheezes, no rhonchi or crackles, breathing is unlabored Abdomen positive bowel sounds soft nontender nondistended Extremities right hip with dressing intact, minimal surrounding edema, able to dorsiflex and plantar flex the right foot, 2 posterior cells pedis pulses bilaterally, no calf tenderness 80-year-old male status post right GEORGE. Doing very well. -Continue postop care as per orthopedics -Continue home meds with the exception of holding lisinopril -Watch for observation of perioperative cardiovascular complication -As per the patient and his , he saw his test specialist prior to surgery. It appears he has not on anticoagulation, and perhaps this is because he is maintained normal sinus rhythm on [place]q for quite some time Documented By: Yvonne Mock
[2016-10-13 18:36] LABS: COMPLETE YES; HEMATOCRIT 33.3 % (42-52); IG% 0.2 %; LYMPH % 7.5 %; MEAN CORPUSCULAR HEMOGLOBIN 29.8 pg (25-34); MEAN CORPUSCULAR HGB CONC 32.4 g/dl (32-36); MEAN PLATELET VOLUME 7.4 fL (7.4-10.4); MONO % 0.3 %; PLATELET COUNT 405 K/uL (130-400); RED BLOOD COUNT 3.62 M/uL (4.7-6.1); WHITE BLOOD COUNT 12.06 K/uL (4.8-10.8)
[2016-10-13 19:06] LABS: BUN/CREATININE RATIO 5.8 (10-20); CALCIUM 8.2 mg/dl (8.5-10.1); CREATININE 1.2 mg/dl (0.60-1.40); POTASSIUM 4.4 mmol/L (3.5-5.1)
[2016-10-13] MEDS: ALBUT/IPRATROP 3MG/0.5MG NEB 3 ML VIAL INH SCH (20:01)
[2016-10-13] MEDS: FLUTICASONE/SALMETEROL 250/50 (ADVAIR) 14 PUFF/1 INHALER INH SCH (21:00)
[2016-10-13] MEDS: SIMVASTATIN 20 MG TAB PO SCH (21:11)
[2016-10-13] MEDS: SENNA 8.6 MG TAB PO SCH (21:11)
[2016-10-13] MEDS: DOCUSATE SODIUM 100 MG CAP PO SCH (21:11)
[2016-10-13] MEDS: CeleBREX 200 MG CAP PO SCH (21:12)
[2016-10-13] MEDS: NIASPAN 500 MG TABCR PO SCH (21:13)
[2016-10-13] MEDS: DRONEDARONE 400 MG TAB PO SCH (21:13)
[2016-10-13] MEDS: ASPIRIN 81 MG ECTAB PO SCH (21:13)
[2016-10-14] VITALS (11 sets, daily range): BP systolic 100–129; BP diastolic 46–68; PULSE 68–89; TEMP 36.4–36.7; O2SAT 93–97
[2016-10-14] MEDS: CEFAZOLIN IV 1,000 MG in DEXTROSE 5% 50ML 50 ML IV SCH (01:37)
[2016-10-14] MEDS: ACETAMINOPHEN 500 MG TAB PO SCH ×3 (05:27→20:48)
[2016-10-14 05:51] LABS: COMPLETE YES; HEMATOCRIT 31.8 % (42-52); IG% 0.3 %; LYMPH ABS # 1.59 K/uL (1.2-3.4); MEAN CELL VOLUME 91.6 fL (80-100); MEAN CORPUSCULAR HEMOGLOBIN 29.4 pg (25-34); MEAN CORPUSCULAR HGB CONC 32.1 g/dl (32-36); MEAN PLATELET VOLUME 7.7 fL (7.4-10.4); MONO % 7.8 %; NEUT % 84.9 %; PLATELET COUNT 445 K/uL (130-400); RED BLOOD COUNT 3.47 M/uL (4.7-6.1); WHITE BLOOD COUNT 22.59 K/uL (4.8-10.8)
[2016-10-14 06:19] LABS: BUN/CREATININE RATIO 11.8 (10-20); CALCIUM 8.2 mg/dl (8.5-10.1); CREATININE 0.82 mg/dl (0.60-1.40)
[2016-10-14] MEDS: ALBUT/IPRATROP 3MG/0.5MG NEB 3 ML VIAL INH SCH ×4 (07:27→20:01)
--- NOTE | 2016-10-14 08:08 | Orthopedic Progress Note ---
Orthopedic Progress Note Date of Service Oct 14, 2016. Subjective Post OP Day: 1 Reports: feeling well, Denies: chest pain, SOB, nausea / vomiting, light headedness, calf pain Additional Notes: PATIENT HAD TO BE REMINDED SEVERAL TIMES TO KEEP HIS LEGS UNCROSSED WHILE I WAS IN THE ROOM. ABDUCTION PILLOW IS ON THE FLOOR. Objective calves soft nontender, N/V intact, hip located, dressing C/D/I, A&O x3, toes mobile, hemovac drainage (125/100CC PER SHIFT) Date Time Temp Pulse Resp B/P (MAP) Pulse Ox O2 Delivery O2 Flow Rate FiO2 10/14/16 07:37 36.6 84 16 129/68 (88) 95 Room Air 10/14/16 07:28 78 20 93 Room Air 10/14/16 03:23 36.7 82 16 127/62 (83) 94 Room Air 10/13/16 23:15 Room Air 10/13/16 22:47 36.8 92 17 111/60 (77) 95 Room Air 10/13/16 20:01 92 20 98 Nasal Cannula 2.0 10/13/16 19:48 36.7 95 18 116/59 (78) 98 Nasal Cannula 2.0 10/13/16 16:00 36.9 85 18 120/65 (83) 99 Nasal Cannula 2.0 10/13/16 14:59 36.4 83 18 115/64 (81) 99 Nasal Cannula 2.0 10/13/16 14:01 36.7 90 18 130/71 (90) 93 Nasal Cannula 2.0 10/13/16 13:27 36.7 94 18 111/60 (77) 96 Nasal Cannula 3.0 10/13/16 13:15 98 Nasal Cannula 3.0 10/13/16 13:03 36.5 92 18 119/66 (83) 98 Nasal Cannula 3.0 10/13/16 13:00 98 Nasal Cannula 2.0 10/13/16 12:41 97/56 10/13/16 12:39 79 17 10/13/16 12:39 75 17 96 10/13/16 12:36 113/62 10/13/16 12:34 73 20 97 10/13/16 12:34 76 20 10/13/16 12:31 109/55 10/13/16 12:29 70 21 97 17 12:29 68 21 14/17 12:26 118/59 14/17 12:24 74 18 87 14/17 12:24 77 18 14/17 12:21 118/62 14/17 12:19 84 17 17 12:19 89 17 92 10/13/16 12:18 77 19 17 12:18 76 19 96 17 12:16 111/54 17 12:13 68 16 95 14/17 12:13 70 16 10/13/16 12:11 114/55 10/13/16 12:08 74 17 98 10/13/16 12:08 76 17 10/13/16 12:06 107/56 10/13/16 12:03 67 16 10/13/16 12:03 65 16 97 10/13/16 12:01 119/61 10/13/16 11:58 88 17 97 10/13/16 11:58 89 17 10/13/16 11:56 114/57 10/13/16 11:53 67 21 10/13/16 11:53 85 21 100 10/13/16 11:51 37.1 88 20 110/56 100 Nasal Cannula 2 10/13/16 11:51 110/56 10/13/16 11:48 76 18 10/13/16 11:48 75 18 99 10/13/16 11:47 96 21 100 10/13/16 11:47 87 21 10/13/16 11:46 114/54 17 11:42 72 15 10/13/16 11:42 69 15 100 17 11:41 108/58 10/13/17 11:37 71 16 98 14/17 11:37 68 16 14/17 11:36 97/55 14/17 11:32 74 18 14/17 11:32 74 18 97 14/17 11:31 120/51 14/17 11:27 80 19 14/17 11:27 86 19 98 14/17 11:26 114/57 14/17 11:22 65 18 99 14/17 11:22 63 18 14/17 11:21 108/52 10/13/16 11:18 64 18 10/13/16 11:18 62 18 98 10/13/16 11:16 95/52 10/13/16 11:13 74 17 97 10/13/16 11:13 62 17 10/13/16 11:11 104/52 10/13/16 11:08 75 15 10/13/16 11:08 80 15 97 10/13/16 11:06 114/52 10/13/16 11:03 75 10/13/16 11:03 75 97 10/13/16 11:01 110/56 10/13/16 10:59 119/65 10/13/16 10:58 36.3 92 20 119/65 94 Mask 10 Laboratory Results 24 Hours: Test 10/13/16 18:29 10/14/16 05:27 White Blood Count 12.06 K/uL 22.59 K/uL Red Blood Count 3.62 M/uL 3.47 M/uL Hemoglobin 10.8 g/dL 10.2 g/dL Hematocrit 33.3 % 31.8 % Mean Corpuscular Volume 92.0 fL 91.6 fL Mean Corpuscular Hemoglobin 29.8 pg 29.4 pg Mean Corpuscular Hemoglobin Concent 32.4 g/dl 32.1 g/dl Platelet Count 405 K/uL 445 K/uL Mean Platelet Volume 7.4 fL 7.7 fL Neutrophils (%) (Auto) 92.0 % 84.9 % Lymphocytes (%) (Auto) 7.5 % 7.0 % Monocytes (%) (Auto) 0.3 % 7.8 % Eosinophils (%) (Auto) 0.0 % 0.0 % Basophils (%) (Auto) 0.0 % 0.0 % Neutrophils # (Auto) 11.10 K/uL 19.16 K/uL Lymphocytes # (Auto) 0.90 K/uL 1.59 K/uL Monocytes # (Auto) 0.04 K/uL 1.77 K/uL Eosinophils # (Auto) 0.00 K/uL 0.00 K/uL Basophils # (Auto) 0.00 K/uL 0.00 K/uL Assessment & Plan Assessment: POD#1 SP RIGHT GEORGE Plan: ENCOURAGE HIP PRECAUTIONS AND USE OF ABDUCTION PILLOW. HIGH RISK FOR DISLOCATION DUE TO NON-COMPLIANCE. Inhouse Planning Pain Management: Celebrex, PO Tylenol, Oxy IR DVT Prophylaxis: TEDs, SCDs, ASA Discharge Planning Discharge Planning: home with home health (DC HOME WITH ADVANTAGE, MAY NEED TO CONSIDER SHORT STAY AT SNF PENDING THERAPY PROGRESS.)
[2016-10-14] MEDS: ASPIRIN 81 MG ECTAB PO SCH ×2 (08:34→20:48)
[2016-10-14] MEDS: CeleBREX 200 MG CAP PO SCH ×2 (08:34→20:48)
[2016-10-14] MEDS: FERROUS GLUCONATE 324 MG TAB PO SCH ×3 (08:34→17:57)
[2016-10-14] MEDS: DRONEDARONE 400 MG TAB PO SCH ×2 (08:34→20:47)
[2016-10-14] MEDS: MULTIVITAMIN TAB PO SCH (08:34)
[2016-10-14] MEDS: PANTOprazole SOD 40 MG TAB PO SCH (08:34)
[2016-10-14] MEDS: DOCUSATE SODIUM 100 MG CAP PO SCH ×2 (08:34→20:49)
[2016-10-14] MEDS: FLUTICASONE/SALMETEROL 250/50 (ADVAIR) 14 PUFF/1 INHALER INH SCH ×2 (08:34→20:49)
[2016-10-14] MEDS ORDERED: MULTIVITAMIN TAB PO SCH (09:00)
[2016-10-14] MEDS: D5W AND 1/2NSS + 20MEQ KCL 1,000 ML IV SCH (09:50)
--- NOTE | 2016-10-14 10:41 | Hospitalist Progress Note ---
Hospitalist Progress Note Date of Service Oct 14, 2016. (Piper Kulkarni ., JOHNNYC) Subjective Pt evaluation today including: conversation w/ patient, physical exam, chart review, lab review, review of inpatient medication list Pain: None PO Intake: Tolerating PO diet Voiding: no voiding problems Patient reports feeling well. He denies any pain at his right hip, although he does state he has some pain in the left hip. He is tolerating a PO diet well and urinating without difficulties. He is passing gas. He has not yet had a bowel movement. He denies any other complaints and wants to go home. The patient denies fevers, chills, sweats, chest pain, palpitations, claudication, cough, wheezing, shortness of breath, nausea, vomiting, abdominal pain, dysuria , hematuria, urinary retention, paralysis, weakness, numbness and tingling. Additional Comments: See HPI for pertinent positives and negatives. All other systems reviewed and negative. (Piper Kulkarni ., TOMASZ-C) Objective Vital Signs Date Time Temp Pulse Resp B/P (MAP) Pulse Ox O2 Delivery O2 Flow Rate FiO2 10/14/16 10:29 95 Room Air 10/14/16 07:37 36.6 84 16 129/68 (88) 95 Room Air 10/14/16 07:28 78 20 93 Room Air 10/14/16 07:20 Room Air 10/14/16 03:23 36.7 82 16 127/62 (83) 94 Room Air 10/13/16 23:15 Room Air 10/13/16 22:47 36.8 92 17 111/60 (77) 95 Room Air 10/13/16 20:01 92 20 98 Nasal Cannula 2.0 10/13/16 19:48 36.7 95 18 116/59 (78) 98 Nasal Cannula 2.0 10/13/16 16:00 36.9 85 18 120/65 (83) 99 Nasal Cannula 2.0 10/13/16 14:59 36.4 83 18 115/64 (81) 99 Nasal Cannula 2.0 10/13/16 14:01 36.7 90 18 130/71 (90) 93 Nasal Cannula 2.0 10/13/16 13:27 36.7 94 18 111/60 (77) 96 Nasal Cannula 3.0 10/13/16 13:15 98 Nasal Cannula 3.0 10/13/17 13:03 36.5 92 18 119/66 (83) 98 Nasal Cannula 3.0 10/13/17 13:00 98 Nasal Cannula 2.0 10/13/17 12:41 97/56 14/17 12:39 79 17 10/13/ 12:39 75 17 96 10/13/16 12:36 113/62 10/13/16 12:34 73 20 97 17 12:34 76 20 10/13/16 12:31 109/55 10/13/17 12:29 70 21 97 14/ 12:29 68 21 10/13/16 12:26 118/59 10/13/16 12:24 74 18 87 10/13/16 12:24 77 18 10/13/16 12:21 118/62 17 12:19 84 17 10/13/16 12:19 89 17 92 10/13/16 12:18 77 19 10/13/16 12:18 76 19 96 10/13/16 12:16 111/54 10/13/16 12:13 68 16 95 10/13/16 12:13 70 16 10/13/16 12:11 114/55 10/13/16 12:08 74 17 98 10/13/16 12:08 76 17 10/13/16 12:06 107/56 10/13/16 12:03 67 16 10/13/16 12:03 65 16 97 10/13/16 12:01 119/61 10/13/16 11:58 88 17 97 10/13/16 11:58 89 17 10/13/16 11:56 114/57 10/13/17 11:53 67 21 10/13/ 11:53 85 21 100 10/13/16 11:51 37.1 88 20 110/56 100 Nasal Cannula 2 10/13/16 11:51 110/56 10/13/17 11:48 76 18 10/13/16 11:48 75 18 99 10/13/16 11:47 96 21 100 10/13/16 11:47 87 21 14/17 11:46 114/54 1417 11:42 72 15 17 11:42 69 15 100 17 11:41 108/58 10/13/16 11:37 71 16 98 10/13/16 11:37 68 16 10/13/16 11:36 97/55 10/13/16 11:32 74 18 10/13/16 11:32 74 18 97 10/13/16 11:31 120/51 10/13/16 11:27 80 19 10/13/16 11:27 86 19 98 10/13/16 11:26 114/57 10/13/16 11:22 65 18 99 10/13/16 11:22 63 18 10/13/16 11:21 108/52 10/13/16 11:18 64 18 10/13/16 11:18 62 18 98 10/13/16 11:16 95/52 10/13/16 11:13 74 17 97 10/13/16 11:13 62 17 10/13/16 11:11 104/52 10/13/16 11:08 75 15 10/13/16 11:08 80 15 97 10/13/16 11:06 114/52 10/13/16 11:03 75 10/13/16 11:03 75 97 10/13/16 11:01 110/56 10/13/16 10:59 119/65 10/13/16 10:58 36.3 92 20 119/65 94 Mask 10 (Piper Kulkarni PA-C) Physical Exam Notes: General appearance: Well-developed, well-nourished, no apparent distress Head: Normocephalic, atraumatic Eyes: Normal inspection, PERRL, EOMI ENT: Normal ENT inspection, hearing grossly normal, pharynx normal Neck: Supple, no JVD, trachea midline Respiratory/Chest: Lungs clear to auscultation, normal breath sounds, no respiratory distress Cardiovascular: Regular rate & rhythm, no gallop, no murmur Abdomen/GI: Normal bowel sounds, non-tender, soft Extremities/Musculoskeletal: +Right hip covered in dressing, c/d/i. Hemovac in place. Normal inspection, no calf tenderness, no pedal edema Neurological/Psych: +Disoriented to time which is baseline. Knows the season and current president but not the correct month/year. Alert, normal mood/affect , oriented x 2 Skin: Normal color, warm/dry, no rash (Piper Klukarni, PA-C) Laboratory Results Last 24 Hours Test 10/13/16 18:29 10/14/16 05:27 White Blood Count 12.06 K/uL 22.59 K/uL Red Blood Count 3.62 M/uL 3.47 M/uL Hemoglobin 10.8 g/dL 10.2 g/dL Hematocrit 33.3 % 31.8 % Mean Corpuscular Volume 92.0 fL 91.6 fL Mean Corpuscular Hemoglobin 29.8 pg 29.4 pg Mean Corpuscular Hemoglobin Concent 32.4 g/dl 32.1 g/dl Platelet Count 405 K/uL 445 K/uL Mean Platelet Volume 7.4 fL 7.7 fL Neutrophils (%) (Auto) 92.0 % 84.9 % Lymphocytes (%) (Auto) 7.5 % 7.0 % Monocytes (%) (Auto) 0.3 % 7.8 % Eosinophils (%) (Auto) 0.0 % 0.0 % Basophils (%) (Auto) 0.0 % 0.0 % Neutrophils # (Auto) 11.10 K/uL 19.16 K/uL Lymphocytes # (Auto) 0.90 K/uL 1.59 K/uL Monocytes # (Auto) 0.04 K/uL 1.77 K/uL Eosinophils # (Auto) 0.00 K/uL 0.00 K/uL Basophils # (Auto) 0.00 K/uL 0.00 K/uL RDW Standard Deviation 46.1 fL 46.3 fL RDW Coefficient of Variation 13.7 % 13.9 % Immature Granulocyte % (Auto) 0.2 % 0.3 % Immature Granulocyte # (Auto) 0.02 K/uL 0.07 K/uL Sodium Level 141 mmol/L 141 mmol/L Potassium Level 4.4 mmol/L 4.0 mmol/L Chloride Level 107 mmol/L 109 mmol/L Carbon Dioxide Level 24 mmol/L 26 mmol/L Anion Gap 10.0 mmol/L 6.0 mmol/L Blood Urea Nitrogen 7 mg/dl 10 mg/dl Creatinine 1.20 mg/dl 0.82 mg/dl Est Creatinine Clear Calc Drug Dose 41.8 ml/min 61.2 ml/min Estimated GFR () 66.3 97.5 Estimated GFR (Non- 57.2 84.1 BUN/Creatinine Ratio 5.8 11.8 Random Glucose 188 mg/dl 139 mg/dl Calcium Level 8.2 mg/dl 8.2 mg/dl (Piper Kulkarni ., JOHNNYC) Assessment and Plan 80 y/o male with a history of paroxysmal a-fib, CAD, [place] x 2 s/p stents x 2 in 2008, HTN, HLD, COPD, osteoporosis and GERD who presents s/p right GEORGE with Dr. Sky on 10/13 for medical management. S/p right GEORGE--stable -Pain management, DVT prophylaxis, and PT/OT as per primary team -POD #1 Leukocytosis--worsening -WBC 12.06 on 10/13, up to 22.59 today -Pt did receive intraoperative steroids -Afebrile, no other s/s of infection -Continue to monitor Paroxysmal a-fib--stable, currently in SR -Continue dronedarone 400 mg PO BID CAD, h/o [place], HTN, HLD -Continue ASA, niacin 500 mg PO qhs and simvastatin 20 mg PO qhs -Resume lisinopril as renal function stable COPD--improving, no wheezing on exam today -DuoNebs QIDR and q2h prn SOB/wheezing -Continue Advair BID Osteoporosis -Pt takes Fosamax 70 mg PO weekly on Sundays GERD -Continue Protonix 40 mg PO qd Code Status -Level I, FULL RESUSCITATION STATUS Thank you for this consultation. We will continue to follow. (Piper Kulkarni ., RAMOS) Reviewed: Pt Seen/Exam by Me (Yvonne Mock MD) History Physician Enrollment Management Coordinator Supervision Note: I interviewed and examined the patient. Discussed with TOMASZ Kulkarni and agree with findings and plan as documented in the note. Any exceptions or clarifications are listed here: Continues to do well, no concerns, no CP Vitals reviewed No acute distress, sitting up in bed Regular rate and rhythm, no murmurs, rubs Lungs with scattered wheezes improved from yesterday, no rhonchi or crackles, breathing is unlabored Abdomen positive bowel sounds soft nontender nondistended Extremities right hip with dressing intact, minimal surrounding edema, able to dorsiflex and plantar flex the right foot, 2 posterior cells pedis pulses bilaterally, no calf tenderness 80-year-old male status post right GEORGE. Continues to do well. -Continue postop care as per orthopedics -restart lisinopril -Watch for observation of perioperative cardiovascular complication -As per the patient and his , he saw his yard inspector prior to surgery. It appears he has not on anticoagulation, and perhaps this is because he is maintained normal sinus rhythm on [place]q for quite some time Documented By: Yvonne Mock (Yvonne Mock MD)
--- NOTE | 2016-10-14 10:54 | Anesthesiology Progress Note ---
Anesthesia Post Op Note Date & Time Oct 14, 2016 at 10:53 Vital Signs Pain Intensity: 5.0 Vital Signs Past 12 Hours Date Time Temp Pulse Resp B/P (MAP) Pulse Ox O2 Delivery O2 Flow Rate FiO2 10/14/16 10:29 95 Room Air 10/14/16 07:37 36.6 84 16 129/68 (88) 95 Room Air 10/14/16 07:28 78 20 93 Room Air 10/14/16 07:20 Room Air 10/14/16 03:23 36.7 82 16 127/62 (83) 94 Room Air 10/13/16 23:15 Room Air Notes Mental Status: alert / awake / arousable, participated in evaluation Pt Amnestic to Procedure: Yes Nausea / Vomiting: adequately controlled Pain: adequately controlled Airway Patency, RR, SpO2: stable & adequate BP & HR: stable & adequate Hydration State: stable & adequate Neuraxial Anesthesia: was administered, sensory block resolved Anesthetic Complications: no major complications apparent
[2016-10-14] MEDS: NIASPAN 500 MG TABCR PO SCH (20:48)
[2016-10-14] MEDS: SIMVASTATIN 20 MG TAB PO SCH (20:48)
[2016-10-14] MEDS: SENNA 8.6 MG TAB PO SCH (20:48)
[2016-10-15] MEDS: ACETAMINOPHEN 500 MG TAB PO SCH ×3 (05:44→22:00)
[2016-10-15 06:17] LABS: COMPLETE YES; EOS % 0.1 %; HEMATOCRIT 32.2 % (42-52); IG% 0.2 %; LYMPH % 13.9 %; LYMPH ABS # 2.28 K/uL (1.2-3.4); MEAN CELL VOLUME 92.3 fL (80-100); MEAN CORPUSCULAR HEMOGLOBIN 29.8 pg (25-34); MEAN CORPUSCULAR HGB CONC 32.3 g/dl (32-36); MEAN PLATELET VOLUME 7.8 fL (7.4-10.4); NEUT % 75.8 %; PLATELET COUNT 449 K/uL (130-400); RED BLOOD COUNT 3.49 M/uL (4.7-6.1); WHITE BLOOD COUNT 16.42 K/uL (4.8-10.8)
[2016-10-15 06:52] LABS: BUN/CREATININE RATIO 11.6 (10-20); CALCIUM 8.3 mg/dl (8.5-10.1); CREATININE 0.76 mg/dl (0.60-1.40)
[2016-10-15 07:34] VITALS: PULSE 70; O2SAT 96
[2016-10-15] MEDS: ALBUT/IPRATROP 3MG/0.5MG NEB 3 ML VIAL INH SCH ×4 (07:34→19:54)
[2016-10-15 07:59] VITALS: BP 126/84; PULSE 80; TEMP 36.5; O2SAT 93
--- NOTE | 2016-10-15 08:06 | Orthopedic Progress Note ---
Orthopedic Progress Note Date of Service Oct 15, 2016. Subjective Post OP Day: 2 Reports: feeling well, Denies: chest pain, SOB, nausea / vomiting, light headedness, calf pain Additional Notes: PATIENT IS AGITATED, WANTS TO GO HOME TODAY. Objective calves soft nontender, N/V intact, hip located, dressing C/D/I, A&O x3, toes mobile Date Time Temp Pulse Resp B/P (MAP) Pulse Ox O2 Delivery O2 Flow Rate FiO2 10/15/16 07:59 36.5 80 18 126/84 (98) 93 Room Air 10/15/16 07:34 70 18 96 Room Air 10/14/16 23:54 Room Air 10/14/16 23:42 36.5 89 16 102/57 (72) 96 Room Air 10/14/16 20:01 68 18 97 Room Air 10/14/16 15:48 70 16 96 Room Air 10/14/16 15:41 36.4 88 16 100/59 (73) 95 10/14/16 15:20 Room Air 10/14/16 12:12 36.5 85 14 115/67 (83) 96 Room Air 10/14/16 11:21 87 96 10/14/16 11:15 76 16 94 Room Air 10/14/16 10:29 95 Room Air Laboratory Results 24 Hours: Test 10/15/16 05:56 White Blood Count 16.42 K/uL Red Blood Count 3.49 M/uL Hemoglobin 10.4 g/dL Hematocrit 32.2 % Mean Corpuscular Volume 92.3 fL Mean Corpuscular Hemoglobin 29.8 pg Mean Corpuscular Hemoglobin Concent 32.3 g/dl Platelet Count 449 K/uL Mean Platelet Volume 7.8 fL Neutrophils (%) (Auto) 75.8 % Lymphocytes (%) (Auto) 13.9 % Monocytes (%) (Auto) 10.0 % Eosinophils (%) (Auto) 0.1 % Basophils (%) (Auto) 0.0 % Neutrophils # (Auto) 12.45 K/uL Lymphocytes # (Auto) 2.28 K/uL Monocytes # (Auto) 1.64 K/uL Eosinophils # (Auto) 0.01 K/uL Basophils # (Auto) 0.00 K/uL Assessment & Plan Assessment: POD#2 SP RIGHT GEORGE Plan: ENCOURAGE HIP PRECAUTIONS AND USE OF ABDUCTION PILLOW. HIGH RISK FOR DISLOCATION DUE TO NON-COMPLIANCE. Inhouse Planning Pain Management: Celebrex, PO Tylenol, Oxy IR DVT Prophylaxis: TEDs, SCDs, ASA Discharge Planning [facility]charge Planning: [facility] facility (REFERRAL PENDING FOR [facility])
[2016-10-15] MEDS: PANTOprazole SOD 40 MG TAB PO SCH (08:35)
[2016-10-15] MEDS: FLUTICASONE/SALMETEROL 250/50 (ADVAIR) 14 PUFF/1 INHALER INH SCH ×2 (08:35→20:52)
[2016-10-15] MEDS: ASPIRIN 81 MG ECTAB PO SCH ×2 (08:35→20:54)
[2016-10-15] MEDS: CeleBREX 200 MG CAP PO SCH ×2 (08:36→20:52)
[2016-10-15] MEDS: DOCUSATE SODIUM 100 MG CAP PO SCH ×2 (08:36→20:54)
[2016-10-15] MEDS: DRONEDARONE 400 MG TAB PO SCH ×2 (08:36→20:55)
[2016-10-15] MEDS: MULTIVITAMIN TAB PO SCH (08:36)
[2016-10-15] MEDS: FERROUS GLUCONATE 324 MG TAB PO SCH ×3 (08:36→17:42)
[2016-10-15 09:23] VITALS: O2SAT 93
[2016-10-15] MEDS: LISINOPRIL 20 MG TAB PO SCH (09:38)
[2016-10-15 15:16] VITALS: BP 117/65; PULSE 84; TEMP 36.5; O2SAT 97
[2016-10-15 15:40] VITALS: PULSE 75; O2SAT 95
[2016-10-15] MEDS: NIASPAN 500 MG TABCR PO SCH (20:55)
[2016-10-15] MEDS: SENNA 8.6 MG TAB PO SCH (20:56)
[2016-10-15] MEDS: SIMVASTATIN 20 MG TAB PO SCH (20:56)
[2016-10-15 23:16] VITALS: BP 132/80; PULSE 82; TEMP 37.1; O2SAT 98
--- NOTE | 2016-10-15 23:17 | Hospitalist Progress Note ---
Hospitalist Progress Note Date of Service Oct 15, 2016. Subjective Pt evaluation today including: conversation w/ patient Pt feels well, is eating and drinking, has some pain in right hip. Denies CP or SOB All Other Systems: Reviewed and Negative Objective Vital Signs Date Time Temp Pulse Resp B/P (MAP) Pulse Ox O2 Delivery O2 Flow Rate FiO2 10/15/16 15:40 75 18 95 Room Air 10/15/16 15:20 Room Air 10/15/16 15:16 36.5 84 18 117/65 (82) 97 Room Air 10/15/16 09:23 93 Room Air 10/15/16 07:59 36.5 80 18 126/84 (98) 93 Room Air 10/15/16 07:34 70 18 96 Room Air 10/15/16 07:15 Room Air 10/14/16 23:54 Room Air 10/14/16 23:42 36.5 89 16 102/57 (72) 96 Room Air Physical Exam General Appearance: WD/WN, no apparent distress Eyes: normal inspection, sclerae normal ENT: + pertinent finding ([place]) Neck: trachea midline Respiratory/Chest: no respiratory distress, no accessory muscle use, + wheezing (scattered throughout) Cardiovascular: regular rate, rhythm, no edema, no gallop, + systolic murmur (1 /6 at RUSB) Abdomen: normal bowel sounds, non tender, soft Extremities: no pedal edema, no calf tenderness, + pertinent finding (right hip with dressing in place c/d/i, some edema of lateral prox thigh) Neurologic/Psychiatric: alert, normal mood/affect Skin: normal color, warm/dry, no rash Laboratory Results Last 24 Hours Test 10/15/16 05:56 White Blood Count 16.42 K/uL Red Blood Count 3.49 M/uL Hemoglobin 10.4 g/dL Hematocrit 32.2 % Mean Corpuscular Volume 92.3 fL Mean Corpuscular Hemoglobin 29.8 pg Mean Corpuscular Hemoglobin Concent 32.3 g/dl Platelet Count 449 K/uL Mean Platelet Volume 7.8 fL Neutrophils (%) (Auto) 75.8 % Lymphocytes (%) (Auto) 13.9 % Monocytes (%) (Auto) 10.0 % Eosinophils (%) (Auto) 0.1 % Basophils (%) (Auto) 0.0 % Neutrophils # (Auto) 12.45 K/uL Lymphocytes # (Auto) 2.28 K/uL Monocytes # (Auto) 1.64 K/uL Eosinophils # (Auto) 0.01 K/uL Basophils # (Auto) 0.00 K/uL RDW Standard Deviation 47.0 fL RDW Coefficient of Variation 14.1 % Immature Granulocyte % (Auto) 0.2 % Immature Granulocyte # (Auto) 0.04 K/uL Sodium Level 144 mmol/L Potassium Level 4.0 mmol/L Chloride Level 111 mmol/L Carbon Dioxide Level 27 mmol/L Anion Gap 6.0 mmol/L Blood Urea Nitrogen 9 mg/dl Creatinine 0.76 mg/dl Est Creatinine Clear Calc Drug Dose 66.0 ml/min Estimated GFR () 100.6 Estimated GFR (Non- 86.8 BUN/Creatinine Ratio 11.6 Random Glucose 74 mg/dl Calcium Level 8.3 mg/dl Assessment and Plan 80 y/o male with a history of paroxysmal a-fib, CAD, HI x 2 s/p stents x 2 in 2008, HTN, HLD, COPD, osteoporosis and GERD who presents s/p right GEORGE with Dr. Sky on 10/13 for medical management. S/p right GEORGE--stable -Pain management, DVT prophylaxis with ASA bid, and PT/OT as per primary team -POD #2 Leukocytosis--improved, was secondary to steroid use intraoperatively -WBC up to 22.59 and now down to 16 -Afebrile, no other s/s of infection -Continue to monitor Paroxysmal a-fib--stable, currently in regular rhythm on exam, no problems -Continue dronedarone 400 mg PO BID -is not on AC for unclear reasons but does follow with Cardiology as an outpt CAD, h/o HI, HTN, HLD-no acute issues -Continue ASA, niacin 500 mg PO qhs and simvastatin 20 mg PO qhs -continue lisinopril COPD--stable with some wheeze, not requiring O2 -DuoNebs QIDR and q2h prn SOB/wheezing -Continue Advair BID Osteoporosis -Pt takes Fosamax 70 mg PO weekly on Sundays GERD -Continue Protonix 40 mg PO qd Proph-ASA bid, TEDs, SCDs Code Status -Level I, FULL RESUSCITATION STATUS Dispo- to SNF possibly tomorrow
[2016-10-16] MEDS: ACETAMINOPHEN 500 MG TAB PO SCH (06:16)
[2016-10-16] MEDS: ALBUT/IPRATROP 3MG/0.5MG NEB 3 ML VIAL INH SCH ×2 (07:29→11:59)
[2016-10-16 07:50] VITALS: BP 110/67; PULSE 82; TEMP 36.7; O2SAT 98
[2016-10-16] MEDS: DRONEDARONE 400 MG TAB PO SCH (08:46)
[2016-10-16] MEDS: LISINOPRIL 20 MG TAB PO SCH (08:46)
[2016-10-16] MEDS: FERROUS GLUCONATE 324 MG TAB PO SCH (08:46)
[2016-10-16] MEDS: FLUTICASONE/SALMETEROL 250/50 (ADVAIR) 14 PUFF/1 INHALER INH SCH (08:46)
[2016-10-16] MEDS: PANTOprazole SOD 40 MG TAB PO SCH (08:47)
[2016-10-16] MEDS: CeleBREX 200 MG CAP PO SCH (08:47)
[2016-10-16] MEDS: DOCUSATE SODIUM 100 MG CAP PO SCH (08:47)
[2016-10-16] MEDS: ASPIRIN 81 MG ECTAB PO SCH (08:47)
[2016-10-16] MEDS: MULTIVITAMIN TAB PO SCH (09:57)
--- NOTE | 2016-10-16 10:04 | Orthopedic Progress Note ---
Orthopedic Progress Note Date of Service Oct 16, 2016. Subjective Post OP Day: 3 Reports: feeling well Objective calves soft nontender, N/V intact, dressing C/D/I, toes mobile Date Time Temp Pulse Resp B/P (MAP) Pulse Ox O2 Delivery O2 Flow Rate FiO2 10/16/16 07:05 Room Air 10/16/16 00:30 Room Air 10/15/16 23:16 37.1 82 20 132/80 (97) 98 Room Air 10/15/16 15:40 75 18 95 Room Air 10/15/16 15:20 Room Air 10/15/16 15:16 36.5 84 18 117/65 (82) 97 Room Air Assessment & Plan Assessment: POD#3 SP RIGHT GEORGE Plan: ENCOURAGE HIP PRECAUTIONS AND USE OF ABDUCTION PILLOW. HIGH RISK FOR DISLOCATION DUE TO NON-COMPLIANCE. Inhouse Planning Pain Management: Celebrex, PO Tylenol, Oxy IR DVT Prophylaxis: TEDs, SCDs, ASA [facility]charge Planning [facility] ([facility] FOR [facility])
[2016-10-16] MEDS ORDERED: ACET-24 PO (10:06)
[2016-10-16] MEDS ORDERED: ASPEC81 PO (10:06)
[2016-10-16] MEDS ORDERED: RXC5 PO (10:06)
[2016-10-16] MEDS ORDERED: ULT50X PO (10:06)
--- NOTE | 2016-10-16 10:08 | Discharge Instructions ---
Discharge Instructions Date of Service Oct 16, 2016. Admission Reason for Admission: Right Hip Osteoarthritis Discharge Discharge Diagnosis / Problem: Right hip arthritis Discharge Goals Goal(s): Decrease discomfort, Improve function Activity Recommendations Activity Limitations: as noted below Weightbearing Status: Right weightbearing (as tolerated) . Instructions / Follow-Up Instructions / Follow-Up ACTIVITY RECOMMENDATIONS: SELF CARE INSTRUCTIONS AFTER TOTAL HIP REPLACEMENT Until the incision and soft tissues around your hip have healed, there is a possibility that the hip prosthesis could dislocate. A. Observe the following precautions to prevent dislocation: 1. Don't bend your hip greater than 90 degrees. 2. Avoid crossing your legs or ankles while standing or lying. 3. Sit with your feet placed 6 inches apart. 4. When sitting, keep your knees below your hips. Sit on a firm surface, avoid deep, soft chairs and couches. Use an elevated toilet seat in the bathroom. 5. Don't bend over at the waist. Use a long handled shoehorn and a sock aid to help you put on your shoes and socks. A admin dir can help you berry picker objects that are too high or too low to reach. 6. Keep car riding to a minimum for at least one month after surgery. B. Your balance may be shaky for a while. Use crutches or a walker until directed by your doctor. C. Use hand rails when walking on stairs. D. Wear low heeled shoes with non-slip soles. E. Be sure that your floors are free of things that could trip you - throw rugs , electrical cords, small objects. Avoid wet and waxed floors, especially with crutches and canes. F. Try to walk several times a day with rest periods between. G. Continue with all the exercises taught to you in the hospital. Again, make walking a part of your daily routine. SPECIAL CARE INSTRUCTIONS: VERY IMPORTANT TO READ AND REVIEW A. You may still be at risk for phlebitis and blood clots. 1. Wear surgical stockings (JEANNE hose) for 2 weeks after surgery to improve circulation and reduce swelling. 2. Take Aspirin 81mg twice daily for 4 weeks or as directed by your doctor. This is your blood thinner. 3. High risk patients may be prescribed a stronger blood thinner if necessary. 4. If you are on Coumadin normally, your family doctor/golf club repairer should monitor your blood work. Expect a phone call the day of or the day after bloodwork is drawn to adjust your dosage. B. You must take antibiotics before having dental work, bladder, bowel and other surgery. Your doctor will provide you with a permanent card to carry describing precautions. C. Call [facility] if you have a fever, redness or swelling around the incision, cloudy drainage from incision, or sudden increase in pain in your hip, not relieved by your regular pain medication. D. Please call the office at if you have any concerns or questions about your operation or recovery. * YOU MAY SHOWER, NO TUB BATHS UNTIL CLEARED BY YOUR DOCTOR. * WEAR JEANNE HOSE 20 HOURS PER DAY FOR 2 WEEKS. * YOU SHOULD USE A WALKER OR CRUTCHES FOR 2-4 WEEKS. THIS WILL HELP PREVENT STRAIN ON YOUR HIP MUSCLE AND ALLOW IT TO HEAL PROPERLY. YOU MAY WEAN TO A CANE TOLERATED. * MOST PATIENTS WILL HAVE HOME NURSING FOR THERAPY. IF YOU DECIDE TO DO OUTPATIENT PHYSICAL THERAPY, PLEASE SCHEDULE THIS 3 TIMES PER WEEK. FOLLOW UP VISIT: If appointment is not already scheduled: Please call [facility] to make a follow-up appointment for 2 weeks after your surgery at . Current Hospital Diet Patient's current hospital diet: AHA Diet (Heart Healthy) Discharge Diet Recommended Diet: AHA Diet (Heart Healthy) Procedures Procedures Performed: Right total hip arthroplasty Pending Studies Studies pending at discharge: no Medical Emergencies . Who to Call and When: Medical Emergencies: If at any time you feel your situation is an emergency, please call 911 immediately. . Non-Emergent Contact Non-Emergency issues call your: Surgeon Call Non-Emergent contact if: temperature is above 101.5, your pain is not controlled, wound has increased drainage, wound has increased redness . "Provider Documentation" section prepared by Everton Bee PA-C. . VTE Core Measure Inpt VTE Proph given/why not?: Other Anticoagulation (ASA 81mg bid), T.E.D. Stockings, SCD's [place] Drug Monitoring Program Search Results: patient reviewed within database, no issues identified
[2016-10-16 11:00] VITALS: BP 132/80; PULSE 82; TEMP 37.1; O2SAT 98
--- NOTE | 2016-10-16 16:21 | DISCHARGE SUMMARY ---
DISCHARGE DIAGNOSIS: Degenerative joint disease, right hip. SECONDARY DIAGNOSES: Atrial fibrillation, coronary artery disease with myocardial infarction in the past, hypertension, gastroesophageal reflux disease, hypercholesterolemia, spinal stenosis, chronic obstructive pulmonary disease, and history of renal calculi. CONSULTS: Yvonne Mock M.D. COMPLICATIONS: None. PROCEDURES: Right total hip arthroplasty performed by Dr. Sky on 10/13/2016. BRIEF HISTORY OF PRESENT ILLNESS: As dictated in history and physical. HOSPITAL SUMMARY: The patient was admitted on the above date and had the above-noted surgery performed which he tolerated well. On the first postoperative day, the patient was feeling well and he was being reminded several times to keep his legs uncrossed while he was in the room and his abduction pillow was on the floor. Calves were soft, nontender, neurovascularly intact. Dressings were clean, dry and intact. Toes were mobile. Vital signs were stable. He was afebrile and hemoglobin was 10.2. He was started on physical therapy protocol and continued on DVT prophylaxis and pain management. Hip precautions were continually encouraged and reinforced and he was continued on the protocol. By his second postoperative day, he was feeling well and was somewhat agitated and wanting to go home. Calves are soft, nontender. Neurovascularly was intact. Hip was located. Dressings were clean, dry and intact. Toes were mobile. Vital signs were stable. He was afebrile. Hemoglobin was 10.4 and it was felt he needed to continue to work on his physical therapy prior to discharge and it was felt he would benefit from a residential facility of which [facility] was chosen. multimedia services manager were consulted to arrange for transfer. By 10/16/2016, he was feeling well. Calves were soft, nontender, neurovascularly intact. Dressings were clean, dry and intact. Toes were mobile. Vital signs were stable. He was afebrile and he was remaining medically stable as well as orthopedically stable and it was felt that he could be transferred to [facility] for further physical therapy and care. For further review, please see chart. LABORATORY DATA AND X-RAY DATA: As per chart. DISCHARGE INSTRUCTIONS: The patient was transferred to [facility] on 10/16/2016. DIET: Heart healthy diet. ACTIVITY: Weightbearing as tolerated to the right lower extremity. Follow GEORGE instructions and special care instructions as noted. Follow up with Dr. Sky in 2 weeks. The patient to call for appointment if one has not been made for you. DISCHARGE MEDICATIONS: Acetaminophen 1000 mg p.o. q. 8 hours for 30 days, aspirin 81 mg p.o. b.i.d., oxycodone 5-10 mg p.o. q. 4 hours p.r.n., tramadol 50-100 mg p.o. q. 4 hours p.r.n. Resume home meds as listed. Stop taking her original 600 mg tablet of acetaminophen, aspirin and resume aspirin once daily after 30 days with taking twice daily tablet. MTDD
== END 2016-10-16 12:31 | DRG 470 ==
LOC: C.ACU 07:08 → C.3E 08:20 → ENRESERV 12:03
PROC: 0SR904Z Replacement of Right Hip Joint with Ceramic on Polyethylene Synthetic Substitute, Open Approach (ICD-10-PCS; principal; 2016-10-13 09:00)
DX: M16.11 Unilateral primary osteoarthritis, right hip (principal); F03.91 Unspecified dementia, unspecified severity, with behavioral disturbance; I48.0 Paroxysmal atrial fibrillation; I25.10 Atherosclerotic heart disease of native coronary artery without angina pectoris; I10 Essential (primary) hypertension; K21.9 Gastro-esophageal reflux disease without esophagitis; E78.00 Pure hypercholesterolemia, unspecified; J44.9 Chronic obstructive pulmonary disease, unspecified; E78.5 Hyperlipidemia, unspecified; M48.00 Spinal stenosis, site unspecified; M81.0 Age-related osteoporosis without current pathological fracture; R01.1 Cardiac murmur, unspecified; M06.9 Rheumatoid arthritis, unspecified; M54.5 Low back pain; F17.290 Nicotine dependence, other tobacco product, uncomplicated; I25.2 Old myocardial infarction; Z79.899 Other long term (current) drug therapy; Z95.5 Presence of coronary angioplasty implant and graft; Z79.82 Long term (current) use of aspirin; Z87.442 Personal history of urinary calculi; Z79.1 Long term (current) use of non-steroidal anti-inflammatories (NSAID); Z79.51 Long term (current) use of inhaled steroids; Z79.83 Long term (current) use of bisphosphonates; T38.0X5A Adverse effect of glucocorticoids and synthetic analogues, initial encounter; Y92.234 Operating room of hospital as the place of occurrence of the external cause; Z91.14 Patient's other noncompliance with medication regimen